=== PATIENT | male | born 1955 | race Two or more races ===

== ENCOUNTER 2017-04-12 09:50 | Inpatient (IN) | payer OTHER ==
[~2017-04-12] VITALS: Ht 165.1 cm; Wt 66.0 kg
[~2017-04-12 09:50] MED LIST: BUPIVACAINE/PF 0.25% ONE; FUROSEMIDE 20 MG/2 ML ONE; MANNITOL PMX 20% 0 ML ONE; THROMBIN 5,000 UNIT VIAL TP ONE
[2017-04-12 10:20] VITALS: BP 183/93
[2017-04-12] MEDS ORDERED: VITAMIN B12 (10:36)
[2017-04-12] MEDS ORDERED: VITAMIN (10:36)
[2017-04-12] MEDS ORDERED: FENTANYL PF 250 MCG/5ML ONE (10:37)
[2017-04-12] MEDS ORDERED: MIDAZOLAM 1 MG/ML, 2ML ONE (10:37)
[2017-04-12] MEDS ORDERED: SUCCINYLCHOLINE 20 MG/ML, 10ML ONE (10:38)
[2017-04-12] MEDS ORDERED: PROPOFOL 10 MG/ML, 20ML ONE (10:38)
[2017-04-12] MEDS ORDERED: ROCURONIUM 10 MG/ML,10ML ONE (10:38)
[2017-04-12 10:56] LABS: ALANINE AMINOTRANSFERASE 26 U/L (12-78); ALBUMIN 4.2 g/dL (3.4-5.0); ANION GAP 8 mmol/L (5-15); CALCIUM 9.2 mg/dL (8.5-10.1); CHLORIDE 101 mmol/L (98-107)
[2017-04-12 10:58] LABS: ALKALINE PHOSPHATASE 101 U/L (45-117); BILIRUBIN,TOTAL 0.9 mg/dL (0.2-1.0); TOTAL PROTEIN 8.6 g/dL (6.4-8.2)
[2017-04-12 11:00] LABS: MICROSCOPIC INDICATED
[2017-04-12 11:05] LABS: CULTURE INDICATED? NO
[2017-04-12] MEDS ORDERED: GLYCOPYRROLATE 0.2MG/1ML, 5ML ONE (11:26)
[2017-04-12] MEDS ORDERED: CEFAZOLIN 1,000 MG ONE (11:26)
[2017-04-12] MEDS ORDERED: NEOSTIGMINE 1 MG/ML, 10ML ONE (11:26)
[2017-04-12] MEDS ORDERED: EPHEDRINE 50 MG/ML, 1ML ONE (11:26)
[2017-04-12] MEDS ORDERED: METOCLOPRAMIDE 5 MG/ML, 2ML IV PRN (12:30)
[2017-04-12] MEDS ORDERED: hydrALAzine 20 MG/ML, 1ML IV PRN (12:30)
[2017-04-12] MEDS ORDERED: ONDANSETRON 2MG/ML, 2ML IVPush PRN (12:30)
[2017-04-12] MEDS ORDERED: HYDROmorphone 1 MG/ML, 1ML IV PRN (12:30)
[2017-04-12] MEDS ORDERED: LABETALOL 5MG/ML, 20ML IV PRN (12:30)
[2017-04-12] MEDS ORDERED: FENTANYL PF 100 MCG/2ML ONE (15:18)
[2017-04-12] MEDS ORDERED: ACETAMINOPHEN 650 MG/20.3 ML UDC ONE (15:18)
[2017-04-12] MEDS ORDERED: OXYcodone 5 MG/5 ML ORAL.SOL UDC ONE ×2 (15:18→15:33)
[2017-04-12] MEDS: FENTANYL PF 100 MCG/2ML IV PRN ×2 (15:20→15:30)
[2017-04-12] MEDS: ACETAMINOPHEN 325 MG TABLET PO PRN ×2 (15:20→15:35)
[2017-04-12] MEDS: OXYcodone 5 MG/5 ML ORAL.SOL UDC PO PRN ×2 (15:20→15:35)
[2017-04-12] MEDS ORDERED: ACETAMINOPHEN 325 MG TABLET ONE (15:32)
[2017-04-12] MEDS ORDERED: HYDROmorphone 2 MG/ML, 1ML ONE (15:48)
[2017-04-12] MEDS: D5%-0.45NACL+KCL 20MEQ 1,000 ML IV SCH (18:24)
[2017-04-12] MEDS: morphine SULFATE 10 MG/ML, 1ML IV PRN (18:41)
[2017-04-12] MEDS ORDERED: ONDANSETRON 2MG/ML, 2ML IV PRN (19:00)
[2017-04-12] MEDS ORDERED: TEMAZEPAM 15 MG CAPSULE PO PRN (19:00)
[2017-04-12] MEDS: CEFAZOLIN PMX 1GM/50ML 50 ML IVPB SCH (19:25)
[2017-04-12] MEDS: HYDROcodone/APAP 5/325 TABLET PO PRN (19:55)
[2017-04-12 20:30] VITALS: BP 143/88
[2017-04-13] MEDS: HYDROcodone/APAP 5/325 TABLET PO PRN ×2 (00:13→06:09)
[2017-04-13 00:35] VITALS: BP 123/74
[2017-04-13] MEDS: morphine SULFATE 10 MG/ML, 1ML IV PRN (02:41)
[2017-04-13] MEDS: D5%-0.45NACL+KCL 20MEQ 1,000 ML IV SCH ×2 (03:29→08:00)
[2017-04-13] MEDS: CEFAZOLIN PMX 1GM/50ML 50 ML IVPB SCH (03:30)
[2017-04-13 05:08] VITALS: BP 123/65
[2017-04-13 06:23] LABS: CHLORIDE 107 mmol/L (98-107)
[2017-04-13 06:28] LABS: ANION GAP 8 mmol/L (5-15); CALCIUM 7.5 mg/dL (8.5-10.1); CREATININE 1.46 mg/dL (0.7-1.3)
[2017-04-13] MEDS ORDERED: ENOXAPARIN 40 MG/0.4 ML SQ SCH (08:00)
[2017-04-13 09:30] VITALS: BP 103/63
[2017-04-13] MEDS ORDERED: HYDR-3240 PO (11:00)
== END 2017-04-13 11:09 | disposition home or self-care (01) | DRG 657 ==
LOC: OUT 09:50 → EDSTATUS 12:00 → 4NOR 16:52 → OUT 16:56 → DCLOUNGE 04-13 10:55
PROVIDERS: ADMIT Urology; ATTEND Urology
PROC: 8E0W4CZ Robotic Assisted Procedure of Trunk Region, Percutaneous Endoscopic Approach (ICD-10-PCS; 2017-04-12)
PROC: 0TT14ZZ Resection of Left Kidney, Percutaneous Endoscopic Approach (ICD-10-PCS; principal; 2017-04-12 12:30)
DX: C64.2 Malignant neoplasm of left kidney, except renal pelvis (principal); R71.0 Precipitous drop in hematocrit; E87.6 Hypokalemia; I10 Essential (primary) hypertension
CPT/HCPCS: 36415; 80048; 80053; 81001; 85014; 85018; 86850; 86900; 88307; J0690; J1170; J1650; J2250; J2704; J2710; J3010; J3490; C1760; J0330; J1940; J2270; J3480

== ENCOUNTER → 2017-05-08 | Outpatient (CLI) | payer OTHER ==
[~2017-05-08] MED LIST changes: -BUPIVACAINE/PF 0.25% ONE; -FUROSEMIDE 20 MG/2 ML ONE; +HYDR-3240 PO; -MANNITOL PMX 20% 0 ML ONE; -THROMBIN 5,000 UNIT VIAL TP ONE; +VITAMIN; +VITAMIN B12
[2017-05-08 16:11] LABS: ANION GAP 7 mmol/L (5-15); CALCIUM 8.9 mg/dL (8.5-10.1); CHLORIDE 101 mmol/L (98-107); CREATININE 1.55 mg/dL (0.7-1.3)
== END | disposition home or self-care (01) ==
LOC: LAB 15:46
PROVIDERS: ATTEND Urology
DX: C64.9 Malignant neoplasm of unspecified kidney, except renal pelvis (principal)
CPT/HCPCS: 36415; 80048

== ENCOUNTER 2018-05-06 11:40 | Inpatient (IN) | payer OTHER ==
[~2018-05-06] VITALS: Ht 165.1 cm; Wt 72.4 kg
--- NOTE | 2018-05-06 11:59 | NUR ---
RUQ pain radiating to R flank with one episode BRB in stool x 1 wk. Pain increased today to 9/10 so came to ER for eval. Pt also c/o dizziness. EKG done in triage. 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 Dr. Truong @ [facility].
[2018-05-06] MEDS ORDERED: ONDANSETRON 2MG/ML, 2ML ONE (12:10)
[2018-05-06] MEDS ORDERED: MORPHINE SULFATE 4 MG/ML, 1ML ONE ×2 (12:11→12:40)
[2018-05-06] MEDS: MORPHINE SULFATE 4 MG/ML, 1ML IVPush PRN ×2 (12:12→12:41)
[2018-05-06 12:16] LABS: BASOPHILS # (AUTO) 0.06 x10^3/uL (0-0.1); BASOPHILS % (AUTO) 1 % (0-1); EOSINOPHILS # (AUTO) 0.14 x10^3/uL (0-0.4); EOSINOPHILS % (AUTO) 1 % (1-7); LYMPHOCYTES # (AUTO) 1.36 x10^3/uL (1-3.4); LYMPHOCYTES % (AUTO) 12 % (22-44); MD NO; MEAN CORPUSCULAR HEMOGLOBIN 30.2 pg (27.5-34.5); MEAN CORPUSCULAR HGB CONC 34.5 g/dL (33.2-36.2); MEAN CORPUSCULAR VOLUME 87.5 fL (81-97); MEAN PLATELET VOLUME 7.3 fL (7.4-10.4); MONOCYTES # (AUTO) 0.56 x10^3/uL (0.2-0.8); MONOCYTES % (AUTO) 5 % (2-9); NEUTROPHILS # (AUTO) 8.91 x10^3/uL (1.8-6.8); NEUTROPHILS % (AUTO) 81 % (42-75); PLATELET COUNT 489 x10^3/uL (130-400); RED BLOOD COUNT 3.38 x10^6/uL (4.38-5.82); RED CELL DISTRIBUTION WIDTH 14.2 % (9.4-14.8)
--- NOTE | 2018-05-06 12:16 | NUR ---
IV est, labs drawn w/ start. Medicated as per emar for 01/09 RUQ/R flank pain. Placed on continuous SPO2 & intermittent NIBP monitors. RAS JUÁREZ IP.
[2018-05-06 12:26] LABS: ALBUMIN 3.8 g/dL (3.4-5.0); ANION GAP 6 mmol/L (5-15); CALCIUM 9.5 mg/dL (8.5-10.1); CHLORIDE 105 mmol/L (98-107)
[2018-05-06 12:30] LABS: ALANINE AMINOTRANSFERASE 27 U/L (12-78); ALKALINE PHOSPHATASE 72 U/L (45-117); BILIRUBIN,TOTAL 0.8 mg/dL (0.2-1.0); CREATININE 1.81 mg/dL (0.7-1.3); TOTAL PROTEIN 7.4 g/dL (6.4-8.2)
[2018-05-06] MEDS ORDERED: ONDANSETRON 2MG/ML, 2ML IVPush ONE (12:30)
[2018-05-06] MEDS ORDERED: SODIUM CHLORIDE FLUSH 10ML SYR IVF ONE (12:30)
--- NOTE | 2018-05-06 12:43 | NUR ---
TASK RN: PT REPORTS LITTLE IMPROVEMENT IN PAIN WITH INITIAL MEDICATIONS, NOW "12"/10. US COMPLETE. PT MEDICATED PER EMAR FOR CONTINUED PAIN.
--- NOTE | 2018-05-06 13:05 | NUR ---
Pt reports pain 05/12. VSS. Chart up for recheck.
[2018-05-06] MEDS ORDERED: HYDROmorphone 1 MG/ML, 1ML ONE ×2 (13:50→15:58)
--- NOTE | 2018-05-06 13:53 | NUR ---
Pain increased back to 12/10. Dr. Truong notified & dilaudid IV admin as per emar. Pt remains on continuous SPO2 & NIBP monitoring. CT results pending, has voided approx 150cc clear yellow urine.
[2018-05-06] MEDS: HYDROmorphone 2 MG/ML, 1ML IVPush PRN ×4 (13:55→21:49)
--- NOTE | 2018-05-06 14:11 | NUR ---
Pain 6/10, resting w/ eyes closed when room entered. POC for pt to have cholecystectomy. Aware of POC. Remains NPO.
[2018-05-06] MEDS ORDERED: ONDANSETRON 2MG/ML, 2ML IVPush PRN ×2 (15:00→15:30)
[2018-05-06] MEDS ORDERED: SODIUM CHLORIDE FLUSH 10ML SYR IVF PRN (15:00)
[2018-05-06] MEDS ORDERED: HYDROmorphone 1 MG/ML, 1ML IVPush PRN (15:00)
--- NOTE | 2018-05-06 15:02 | NUR ---
hospitalist at bedside
[2018-05-06 15:03] LABS: MICROSCOPIC NOT IND
[2018-05-06 15:06] LABS: CULTURE INDICATED? NO
[2018-05-06] MEDS ORDERED: ACETAMINOPHEN 325 MG TABLET PO PRN ×2 (15:30→21:00)
[2018-05-06] MEDS ORDERED: morphine SULFATE 10 MG/ML, 1ML IVPush PRN (15:30)
--- NOTE | 2018-05-06 15:56 | NUR ---
Report to Armando
--- NOTE | 2018-05-06 16:00 | NUR ---
Pt pain increasing to 8/10. Dilaudid repeated prior to transport upstairs. Receiving nurse notified.
[2018-05-06] MEDS: HEPARIN 5,000 UNITS/ML, 1ML SQ SCH ×2 (16:30→23:29)
[2018-05-06 17:19] VITALS: BP 130/70
[2018-05-06] MEDS: SODIUM CHLORIDE 0.9% 1,000 ML IV SCH (17:42)
[2018-05-06 19:33] VITALS: BP 130/66
[2018-05-06] MEDS ORDERED: BUPIVACAINE/PF-EPI 0.5% 1:200K ONE (20:10)
[2018-05-06] MEDS ORDERED: MIDAZOLAM 1 MG/ML, 2ML ONE (20:28)
[2018-05-06] MEDS ORDERED: FENTANYL PF 100 MCG/2ML ONE ×3 (20:28)
[2018-05-06] MEDS ORDERED: NEOSTIGMINE 1 MG/ML, 10ML ONE (20:35)
[2018-05-06] MEDS ORDERED: CEFOTETAN 2 GM ONE (20:35)
[2018-05-06] MEDS ORDERED: PHENYLEPHRINE 10 MG/ML ONE (20:35)
[2018-05-06] MEDS ORDERED: ROCURONIUM 10MG/ML,5ML ONE (20:35)
[2018-05-06] MEDS ORDERED: PROPOFOL 10 MG/ML, 20ML ONE (20:35)
[2018-05-06] MEDS ORDERED: DEXAMETHASONE 4 MG/ML, 1ML ONE (20:35)
[2018-05-06] MEDS ORDERED: GLYCOPYRROLATE 0.2MG/1ML, 5ML ONE (20:35)
[2018-05-06] MEDS ORDERED: BUPIVACAINE/PF-EPI 0.5% 1:200K INFIL ONE (20:57)
[2018-05-06] MEDS ORDERED: hydrALAzine 20 MG/ML, 1ML IV PRN (21:00)
[2018-05-06] MEDS ORDERED: HALOPERIDOL 5 MG/ML IV PRN (21:00)
[2018-05-06] MEDS ORDERED: PROMETHAZINE 25 MG/ML, 1ML IV PRN (21:00)
[2018-05-06] MEDS ORDERED: FENTANYL PF 100 MCG/2ML IV PRN (21:00)
[2018-05-06] MEDS ORDERED: MEPERIDINE/PF 25MG/0.5ML IVPush PRN (21:00)
[2018-05-06] MEDS ORDERED: PROMETHAZINE 25 MG/ML, 1ML ONE (21:32)
[2018-05-06] MEDS ORDERED: HYDROmorphone 2 MG/ML, 1ML ONE (21:37)
[2018-05-07 03:29] VITALS: BP 104/47
[2018-05-07] MEDS: SODIUM CHLORIDE 0.9% 1,000 ML IV SCH (04:58)
[2018-05-07 05:53] LABS: MEAN CORPUSCULAR HEMOGLOBIN 30.2 pg (27.5-34.5); MEAN CORPUSCULAR HGB CONC 34.7 g/dL (33.2-36.2); MEAN CORPUSCULAR VOLUME 87.1 fL (81-97); MEAN PLATELET VOLUME 7.6 fL (7.4-10.4); PLATELET COUNT 427 x10^3/uL (130-400); RED BLOOD COUNT 3.01 x10^6/uL (4.38-5.82); RED CELL DISTRIBUTION WIDTH 13.7 % (9.4-14.8)
[2018-05-07 05:59] LABS: ANION GAP 8 mmol/L (5-15); CALCIUM 8.2 mg/dL (8.5-10.1); CHLORIDE 107 mmol/L (98-107); CREATININE 2.17 mg/dL (0.7-1.3)
[2018-05-07 06:54] VITALS: BP 121/70
[2018-05-07 07:38] LABS: BASOPHILS % (AUTO) 0 % (0-1); EOSINOPHILS % (AUTO) 0 % (1-7); LYMPHOCYTES # (AUTO) 0.36 x10^3/uL (1-3.4); LYMPHOCYTES % (AUTO) 3 % (22-44); MD SCAN; MONOCYTES # (AUTO) 0.09 x10^3/uL (0.2-0.8); MONOCYTES % (AUTO) 1 % (2-9); NEUTROPHILS # (AUTO) 10.36 x10^3/uL (1.8-6.8); NEUTROPHILS % (AUTO) 96 % (42-75)
[2018-05-07] MEDS: HEPARIN 5,000 UNITS/ML, 1ML SQ SCH (08:33)
[2018-05-07] MEDS: OXYcodone 5 MG/5 ML ORAL.SOL UDC PO PRN ×2 (08:33→11:37)
[2018-05-07] MEDS ORDERED: ACET325T14 PO (11:46)
== END 2018-05-07 13:10 | disposition home or self-care (01) | DRG 417 ==
LOC: ED 12:45 → EDIP 14:54 → 4NOR 16:08 → DCLOUNGE 05-07 12:51
PROVIDERS: ADMIT Internal Medicine; ATTEND Internal Medicine
PROC: 0FT44ZZ Resection of Gallbladder, Percutaneous Endoscopic Approach (ICD-10-PCS; principal; 2018-05-06 21:40)
DX: K80.13 Calculus of gallbladder with acute and chronic cholecystitis with obstruction (principal); N17.0 Acute kidney failure with tubular necrosis; E87.1 Hypo-osmolality and hyponatremia; I10 Essential (primary) hypertension; D47.3 Essential (hemorrhagic) thrombocythemia; D64.9 Anemia, unspecified; Z85.528 Personal history of other malignant neoplasm of kidney; Z90.5 Acquired absence of kidney
CPT/HCPCS: 36415; J3490; 74176; 76700; 80048; 80053; 81003; 83690; 85025; 88304; 93005; G0378; J1100; J1170; J1644; J2250; J2405; J2704; J2710; J3010; J2370; J7030

== ENCOUNTER 2018-05-12 17:44 | Emergency (ER) | payer OTHER ==
[~2018-05-12] VITALS: Ht 165.1 cm; Wt 70.0 kg
[~2018-05-12 17:44] MED LIST changes: +ACET325T14 PO
[2018-05-12] MEDS ORDERED: HYDROmorphone 1 MG/ML, 1ML ONE ×2 (18:10→18:34)
[2018-05-12] MEDS: HYDROmorphone 2 MG/ML, 1ML IVPush PRN ×2 (18:12→18:26)
--- NOTE | 2018-05-12 18:15 | NUR ---
LATE NOTE ENTRY FOR 1749: First contact with pt. Pt tearful laying on gurterry guarding right upper quadrant. Family member at bedside. Pt states, "I had surgery . The last two days I have been in pain like this. It hurts also in my back. I have been taking the Acetaminophen 500s. That is all they have given me." Pt's skin is jaundice. Pt has three laproscopic surgical wounds with approximated edges, skin is pink, warm, and dry around incisions, and no drainaige or signs of infection observed. Pt denies cp, sob, fever, n/v/d, or blood in stool. Pt connected to all monitors. All safety measures in place. Pt has call light within reach.
--- NOTE | 2018-05-12 18:18 | NUR ---
LATE NOTE ENTRY FOR 1800: 20 g PIV established in right AC.
--- NOTE | 2018-05-12 18:19 | NUR ---
Provided medication per EMAR.
[2018-05-12 18:24] LABS: BASOPHILS # (AUTO) 0.02 x10^3/uL (0-0.1); BASOPHILS % (AUTO) 0 % (0-1); EOSINOPHILS # (AUTO) 0.13 x10^3/uL (0-0.4); EOSINOPHILS % (AUTO) 2 % (1-7); LYMPHOCYTES % (AUTO) 20 % (22-44); MD NO; MEAN CORPUSCULAR HEMOGLOBIN 28.8 pg (27.5-34.5); MEAN CORPUSCULAR HGB CONC 33.8 g/dL (33.2-36.2); MEAN CORPUSCULAR VOLUME 85.1 fL (81-97); MEAN PLATELET VOLUME 7.4 fL (7.4-10.4); MONOCYTES # (AUTO) 0.51 x10^3/uL (0.2-0.8); MONOCYTES % (AUTO) 6 % (2-9); NEUTROPHILS # (AUTO) 6.32 x10^3/uL (1.8-6.8); NEUTROPHILS % (AUTO) 73 % (42-75); PLATELET COUNT 527 x10^3/uL (130-400); RED BLOOD COUNT 3.61 x10^6/uL (4.38-5.82); RED CELL DISTRIBUTION WIDTH 13.6 % (9.4-14.8)
--- NOTE | 2018-05-12 18:27 | NUR ---
Provided medications per EMAR. Pt states no relief from pain medications. Both doses provided. ED aware. CT contacted by ED. Pt seen this past week for gallstones and was admitted for surgery. JEANINE aware.
[2018-05-12] MEDS ORDERED: SODIUM CHLORIDE FLUSH 10ML SYR IVF ONE (18:30)
[2018-05-12] MEDS ORDERED: ACET325T26 PO (18:32)
[2018-05-12 18:35] LABS: ALBUMIN 3.7 g/dL (3.4-5.0); ANION GAP 10 mmol/L (5-15); CALCIUM 9.5 mg/dL (8.5-10.1); CHLORIDE 101 mmol/L (98-107)
[2018-05-12 18:37] LABS: ALANINE AMINOTRANSFERASE 36 U/L (12-78); ALKALINE PHOSPHATASE 80 U/L (45-117); BILIRUBIN,TOTAL 0.5 mg/dL (0.2-1.0); CREATININE 1.85 mg/dL (0.7-1.3); TOTAL PROTEIN 7.9 g/dL (6.4-8.2)
[2018-05-12 18:38] LABS: ACETAMINOPHEN < 2 mcg/mL (10-30)
--- NOTE | 2018-05-12 18:39 | NUR ---
Pt transported to CT on [facility].
--- NOTE | 2018-05-12 19:03 | NUR ---
Jennifer sesay in ED - 05/12/18 at 1904 by BIGG REPORT OF PT FROM KENNY BARNETT AND ASSUMING CARE OF PT AT THIS TIME.
--- NOTE | 2018-05-12 19:04 | NUR ---
REPORT OF PT FROM KENNY BARNETT AND ASSUMING CARE OF PT AT THIS TIME.
--- NOTE | 2018-05-12 19:04 | NUR ---
Provided bedside report to KENNY Araya. All questions answered. Marshal to assume care of pt.
[2018-05-12] MEDS ORDERED: LORazepam 2 MG/ML, 1ML ONE (19:40)
--- NOTE | 2018-05-12 19:46 | NUR ---
PT MEDICATED PER MAR.
[2018-05-12] MEDS ORDERED: LORazepam 2 MG/ML, 1ML IVPush ONE (20:00)
--- NOTE | 2018-05-12 20:05 | NUR ---
pt to us via josefina.
--- NOTE | 2018-05-12 20:20 | NUR ---
PT BACK FROM US AT THIS TIME.
[2018-05-12] MEDS ORDERED: MAGNESIUM CITRATE 300ML ORAL SOL ONE (20:42)
[2018-05-12] MEDS ORDERED: MAGNESIUM CITRATE 300ML ORAL SOL PO ONE (21:00)
--- NOTE | 2018-05-12 21:32 | NUR ---
PT PROVIDED [facility] FOR D/C HOME PER DR WOLFF. PT GIVEN D/C SUMMARY AND SCRIPTS. ALL QUESTIONS ANSWERED. PT VSS AND UPDATED IN EMR. PT DENIES ANY OTHER NEEDS PERTAINING TO THIS VISIT.
[2018-05-12 21:33] VITALS: BP 135/68
== END 2018-05-12 21:36 | disposition home or self-care (01) ==
LOC: ED 18:21
DX: R10.84 Generalized abdominal pain (principal)
CPT/HCPCS: 36415; 74176; 76700; 80053; 80307; 83690; 85025; 96374; 96375; 99284; J1170; J2060

== ENCOUNTER 2018-06-20 15:10 | Inpatient (IN) | payer OTHER ==
[~2018-06-20] VITALS: Ht 165.1 cm; Wt 70.5 kg
[~2018-06-20 15:10] MED LIST changes: +ACET325T26 PO
--- NOTE | 2018-06-20 15:25 | NUR ---
Pt to room with EDT, pt changed into gown and placed on all monitors, NSR noted. Pt RUQ pain x 2 days worse today appx 1 hour after he ate potatoes. Pt states that the pain feels the same as when he had his toy 6 weeks ago. Pt states that he had a BM today and it was "bloody and dark." Pt denies nausea, states that he made himself throw up one time today to try to make himself feel better, but his pain did not improve.
--- NOTE | 2018-06-20 15:31 | NUR ---
Lab at bedside. EDT at bedside for EKG.
--- NOTE | 2018-06-20 15:35 | NUR ---
Pt to US, with tech, via [email or web address]. Pt aware of need for urine sample.
[2018-06-20 15:43] LABS: BASOPHILS # (AUTO) 0.03 x10^3/uL (0-0.1); BASOPHILS % (AUTO) 0 % (0-1); EOSINOPHILS # (AUTO) 0.44 x10^3/uL (0-0.4); EOSINOPHILS % (AUTO) 4 % (1-7); LYMPHOCYTES # (AUTO) 1.51 x10^3/uL (1-3.4); LYMPHOCYTES % (AUTO) 13 % (22-44); MD NO; MEAN CORPUSCULAR HEMOGLOBIN 24.7 pg (27.5-34.5); MEAN CORPUSCULAR VOLUME 77.3 fL (81-97); MEAN PLATELET VOLUME 7.5 fL (7.4-10.4); MONOCYTES # (AUTO) 0.78 x10^3/uL (0.2-0.8); MONOCYTES % (AUTO) 7 % (2-9); NEUTROPHILS # (AUTO) 8.84 x10^3/uL (1.8-6.8); NEUTROPHILS % (AUTO) 76 % (42-75); PLATELET COUNT 529 x10^3/uL (130-400); RED BLOOD COUNT 2.99 x10^6/uL (4.38-5.82); RED CELL DISTRIBUTION WIDTH 16.5 % (9.4-14.8)
[2018-06-20 15:55] LABS: ALANINE AMINOTRANSFERASE 25 U/L (12-78); ALBUMIN 3.5 g/dL (3.4-5.0); ANION GAP 7 mmol/L (5-15); CALCIUM 9.3 mg/dL (8.5-10.1); CHLORIDE 105 mmol/L (98-107); CREATININE 1.87 mg/dL (0.7-1.3)
[2018-06-20 15:57] LABS: ALKALINE PHOSPHATASE 88 U/L (45-117); BILIRUBIN,TOTAL 0.5 mg/dL (0.2-1.0); TOTAL PROTEIN 7.7 g/dL (6.4-8.2)
--- NOTE | 2018-06-20 16:12 | NUR ---
Pt back to room from imaging. PIV started, 2nd set of blood cultures drawn.
--- NOTE | 2018-06-20 16:15 | NUR ---
JONATHAN, Mary Kate, at bedside to evaluate pt. This RN assisted Mary Kate with rectal exam. Pt appears to be in a lot of pain and states that it is severe and localized to his RUQ.
[2018-06-20] MEDS ORDERED: ONDANSETRON 2MG/ML, 2ML ONE (16:19)
[2018-06-20] MEDS ORDERED: MORPHINE SULFATE 4 MG/ML, 1ML ONE ×2 (16:20→19:42)
[2018-06-20] MEDS ORDERED: FAMOTIDINE 20 MG/2 ML ONE (16:20)
[2018-06-20] MEDS: MORPHINE SULFATE 4 MG/ML, 1ML IVPush PRN ×2 (16:28→19:49)
--- NOTE | 2018-06-20 16:29 | NUR ---
Pt medicated per MAY, for pain. Urine sample collected and sent to lab.
[2018-06-20] MEDS ORDERED: FAMOTIDINE 20 MG/2 ML IVP ONE (16:30)
[2018-06-20] MEDS ORDERED: SODIUM CHLORIDE FLUSH 10ML SYR IVF ONE (16:30)
[2018-06-20] MEDS ORDERED: ONDANSETRON 2MG/ML, 2ML IVPush ONE (16:30)
--- NOTE | 2018-06-20 16:44 | NUR ---
Dr. Dunham at bedside to evaluate pt.
[2018-06-20] MEDS ORDERED: HYDROmorphone 1 MG/ML, 1ML ONE (16:47)
[2018-06-20 16:48] LABS: MICROSCOPIC NOT IND
[2018-06-20] MEDS ORDERED: HYDROmorphone 1 MG/ML, 1ML IV ONE (17:00)
[2018-06-20 17:05] LABS: CULTURE INDICATED? NO
--- NOTE | 2018-06-20 17:30 | NUR ---
Pt in imaging at this time.
--- NOTE | 2018-06-20 17:42 | NUR ---
Pt back to room from imaging.
--- NOTE | 2018-06-20 18:04 | NUR ---
Pt sleeping on [employer]. VSS.
--- NOTE | 2018-06-20 18:35 | NUR ---
Dr. Dunham at bedside to discuss ED findings and POC/plan to admit.
[2018-06-20] MEDS ORDERED: PANTOPRAZOLE 80 MG in SODIUM CHLORIDE 0.9% 50 ML IVPB ONE (18:43)
[2018-06-20] MEDS ORDERED: PANTOPRAZOLE 80 MG in SODIUM CHLORIDE 0.9% 100 ML IV SCH (18:43)
[2018-06-20] MEDS ORDERED: BISACODYL 10 MG SUPP PR PRN (19:30)
[2018-06-20] MEDS ORDERED: ONDANSETRON 2MG/ML, 2ML IVPush PRN (19:30)
--- NOTE | 2018-06-20 19:33 | NUR ---
Pt medicated per MAR.
--- NOTE | 2018-06-20 19:38 | NUR ---
Telephone SBAR report called to Yuri [facility]. Pt made aware of new room assignment.
[2018-06-20 20:33] VITALS: BP 115/61
[2018-06-20] MEDS: PANTOPRAZOLE 40 MG IV IVPush SCH (21:00)
[2018-06-20] MEDS: morphine SULFATE 10 MG/ML, 1ML IVPush PRN (23:30)
[2018-06-20] MEDS: LACTATED RINGERS 1,000 ML IV SCH (23:31)
[2018-06-20 23:59] VITALS: BP 116/68
[2018-06-21] VITALS (14 sets, daily range): BP systolic 107–147; BP diastolic 57–82
[2018-06-21] MEDS: morphine SULFATE 10 MG/ML, 1ML IVPush PRN ×5 (02:49→19:57)
[2018-06-21] MEDS: LACTATED RINGERS 1,000 ML IV SCH ×3 (04:56→19:57)
[2018-06-21 08:31] LABS: INTERNATIONAL NORMALIZED RATIO 1.04 (0.93-1.1); PROTHROMBIN TIME 10.9 Seconds (9.6-11.5)
[2018-06-21 08:34] LABS: ALANINE AMINOTRANSFERASE 23 U/L (12-78); ALBUMIN 2.8 g/dL (3.4-5.0); ANION GAP 7 mmol/L (5-15); CALCIUM 8.5 mg/dL (8.5-10.1); CHLORIDE 109 mmol/L (98-107)
[2018-06-21 08:36] LABS: ALKALINE PHOSPHATASE 77 U/L (45-117); BILIRUBIN,TOTAL 0.7 mg/dL (0.2-1.0); CREATININE 1.89 mg/dL (0.7-1.3); TOTAL PROTEIN 6.4 g/dL (6.4-8.2)
[2018-06-21 08:40] LABS: BASOPHILS # (AUTO) 0.04 x10^3/uL (0-0.1); BASOPHILS % (AUTO) 1 % (0-1); EOSINOPHILS # (AUTO) 0.62 x10^3/uL (0-0.4); EOSINOPHILS % (AUTO) 7 % (1-7); LYMPHOCYTES # (AUTO) 1.38 x10^3/uL (1-3.4); LYMPHOCYTES % (AUTO) 16 % (22-44); MD NO; MEAN CORPUSCULAR HEMOGLOBIN 26.7 pg (27.5-34.5); MEAN CORPUSCULAR HGB CONC 32.6 g/dL (33.2-36.2); MEAN CORPUSCULAR VOLUME 81.7 fL (81-97); MEAN PLATELET VOLUME 7.4 fL (7.4-10.4); MONOCYTES # (AUTO) 0.62 x10^3/uL (0.2-0.8); MONOCYTES % (AUTO) 7 % (2-9); NEUTROPHILS # (AUTO) 5.94 x10^3/uL (1.8-6.8); NEUTROPHILS % (AUTO) 69 % (42-75); PLATELET COUNT 433 x10^3/uL (130-400); RED BLOOD COUNT 3.31 x10^6/uL (4.38-5.82); RED CELL DISTRIBUTION WIDTH 17.3 % (9.4-14.8)
[2018-06-21 08:43] LABS: HEMOGRAM NOTE RECHECKED
[2018-06-21] MEDS: IRON SUCROSE COMPLEX 100MG/5ML IV SCH (09:42)
[2018-06-21] MEDS: PANTOPRAZOLE 40 MG IV IVPush SCH (09:42)
[2018-06-21] MEDS ORDERED: PROPOFOL 10 MG/ML, 50ML ONE (10:54)
[2018-06-21] MEDS ORDERED: hydrALAzine 20 MG/ML, 1ML IV PRN (11:30)
[2018-06-21] MEDS ORDERED: MEPERIDINE/PF 25MG/0.5ML IVPush PRN (11:30)
[2018-06-21] MEDS ORDERED: PROMETHAZINE 12.5 MG SUPP PR PRN (11:30)
[2018-06-21] MEDS ORDERED: MORPHINE SULFATE 4 MG/ML, 1ML IVPush PRN (11:30)
[2018-06-21] MEDS ORDERED: MIDAZOLAM 1 MG/ML, 2ML IV PRN (11:30)
[2018-06-21] MEDS ORDERED: FENTANYL PF 100 MCG/2ML IV PRN (11:30)
[2018-06-21] MEDS ORDERED: LABETALOL 5MG/ML, 20ML IV PRN (11:30)
[2018-06-21] MEDS ORDERED: PROMETHAZINE 25 MG/ML, 1ML IV PRN (11:30)
[2018-06-21] MEDS ORDERED: ONDANSETRON ODT 8 MG PO PRN (11:30)
[2018-06-21] MEDS ORDERED: HYDROmorphone 2 MG/ML, 1ML IVPush PRN (11:30)
[2018-06-21] MEDS ORDERED: HALOPERIDOL 5 MG/ML IV PRN (11:30)
[2018-06-21] MEDS ORDERED: ALBUTEROL SULFATE 2.5 MG/3 ML NPPB PRN (11:30)
[2018-06-21] MEDS ORDERED: OXYcodone 5 MG/5 ML ORAL.SOL UDC PO PRN (11:30)
[2018-06-21] MEDS ORDERED: ONDANSETRON 2MG/ML, 2ML IV PRN (11:30)
[2018-06-21] MEDS ORDERED: DIAZEPAM 5 MG/ML, 2ML IVPush PRN (11:30)
[2018-06-21] MEDS ORDERED: EPHEDRINE 50 MG/ML, 1ML IVPush PRN (11:30)
[2018-06-21] MEDS ORDERED: PANTOPRAZOLE MC SCH (16:00)
[2018-06-21] MEDS ORDERED: OMEPRAZOLE MC SCH (16:00)
[2018-06-21] MEDS: OMEPRAZOLE 20 MG CAPSULE.DR PO SCH (16:09)
[2018-06-21] MEDS: SUCRALFATE 1 GM/10 ML UDC PO SCH ×2 (16:09→19:56)
[2018-06-21 16:45] LABS: ANION GAP 7 mmol/L (5-15); CALCIUM 8.7 mg/dL (8.5-10.1); CHLORIDE 108 mmol/L (98-107); CREATININE 1.92 mg/dL (0.7-1.3)
[2018-06-22 01:35] VITALS: BP 131/69
[2018-06-22] MEDS: morphine SULFATE 10 MG/ML, 1ML IVPush PRN (05:11)
[2018-06-22] MEDS: LACTATED RINGERS 1,000 ML IV SCH (05:11)
[2018-06-22] MEDS: OMEPRAZOLE 20 MG CAPSULE.DR PO SCH (05:11)
[2018-06-22 06:44] LABS: BASOPHILS # (AUTO) 0.03 x10^3/uL (0-0.1); BASOPHILS % (AUTO) 0 % (0-1); EOSINOPHILS # (AUTO) 0.61 x10^3/uL (0-0.4); EOSINOPHILS % (AUTO) 8 % (1-7); LYMPHOCYTES # (AUTO) 1.08 x10^3/uL (1-3.4); LYMPHOCYTES % (AUTO) 14 % (22-44); MD NO; MEAN CORPUSCULAR HGB CONC 32.9 g/dL (33.2-36.2); MEAN CORPUSCULAR VOLUME 81.8 fL (81-97); MEAN PLATELET VOLUME 7.7 fL (7.4-10.4); MONOCYTES % (AUTO) 8 % (2-9); NEUTROPHILS # (AUTO) 5.32 x10^3/uL (1.8-6.8); NEUTROPHILS % (AUTO) 70 % (42-75); PLATELET COUNT 441 x10^3/uL (130-400); RED BLOOD COUNT 3.73 x10^6/uL (4.38-5.82); RED CELL DISTRIBUTION WIDTH 17.9 % (9.4-14.8)
[2018-06-22 06:54] LABS: ANION GAP 6 mmol/L (5-15); CALCIUM 8.8 mg/dL (8.5-10.1); CHLORIDE 108 mmol/L (98-107)
[2018-06-22 06:58] LABS: ALANINE AMINOTRANSFERASE 25 U/L (12-78); ALKALINE PHOSPHATASE 89 U/L (45-117); BILIRUBIN,TOTAL 0.5 mg/dL (0.2-1.0); TOTAL PROTEIN 6.7 g/dL (6.4-8.2)
[2018-06-22 08:16] VITALS: BP 137/64
[2018-06-22] MEDS ORDERED: SUCRALFATE 1 GM/10 ML UDC PO SCH (09:00)
[2018-06-22] MEDS: IRON SUCROSE COMPLEX 100MG/5ML IV SCH (09:23)
[2018-06-22] MEDS ORDERED: OMEP-110 PO (11:04)
[2018-06-22] MEDS ORDERED: FERR324T5 PO (11:04)
[2018-06-22] MEDS ORDERED: SUCR1ORA5 PO (11:04)
[2018-06-22] MEDS ORDERED: OMEPRAZOLE 20 MG CAPSULE.DR PO SCH (16:00)
== END 2018-06-22 12:25 | disposition home or self-care (01) | DRG 377 ==
LOC: ED 19:05 → EDIP 19:11 → ED 19:58 → 3NE 20:12 → DCLOUNGE 06-22 12:05
PROVIDERS: ADMIT Family Medicine; ATTEND Family Medicine
PROC: 30233N1 Transfusion of Nonautologous Red Blood Cells into Peripheral Vein, Percutaneous Approach (ICD-10-PCS; principal; 2018-06-20)
PROC: 0DB68ZX Excision of Stomach, Via Natural or Artificial Opening Endoscopic, Diagnostic (ICD-10-PCS; 2018-06-21)
PROC: 30233N1 Transfusion of Nonautologous Red Blood Cells into Peripheral Vein, Percutaneous Approach (ICD-10-PCS; 2018-06-21)
DX: K25.4 Chronic or unspecified gastric ulcer with hemorrhage (principal); K85.90 Acute pancreatitis without necrosis or infection, unspecified; D62 Acute posthemorrhagic anemia; K22.11 Ulcer of esophagus with bleeding; K26.4 Chronic or unspecified duodenal ulcer with hemorrhage; E78.5 Hyperlipidemia, unspecified; I10 Essential (primary) hypertension; N28.1 Cyst of kidney, acquired; Z79.1 Long term (current) use of non-steroidal anti-inflammatories (NSAID); Z90.5 Acquired absence of kidney; Z90.49 Acquired absence of other specified parts of digestive tract; Z87.11 Personal history of peptic ulcer disease; Z85.528 Personal history of other malignant neoplasm of kidney
CPT/HCPCS: 36415; 74022; 99291; J3490; 36430; 74176; 76700; 80048; 80053; 81003; 82728; 83540; 83550; 83690; 85014; 85018; 85025; 85610; 85730; 86850; 86900; 86923; 88305; 93005; 96374; 96375; 96376; G0378; J1170; J1756; J2405; J2704; C9113; J2270; J7120; P9016